=== PATIENT | male | born 1950 | race Two or more races ===

== ENCOUNTER 2024-07-20 08:20 | Day surgery (SDC) | payer MEDICARE ==
[2024-07-16 14:59] LABS: APTT 27 SECONDS (22-32); PROTHROMBIN TIME 10.9 SECONDS (9.0-12.0)
[2024-07-16 15:04] LABS: ALBUMIN 3.9 G/DL (3.4-5.0); ANION GAP 7 (8-16); BLOOD UREA NITROGEN 10 MG/DL (7-18); CALCIUM 9.1 MG/DL (8.5-10.1); CHLORIDE 99 MMOL/L (99-107); CHOL/HDL RATIO 2.7 (0.00-4.99); CHOLESTEROL 167 MG/DL (0-200); CREATININE 0.83 MG/DL (0.60-1.10); GLUCOSE 154 MG/DL (70-104); HDL CHOLESTEROL 62 MG/DL (35-60); LDL CHOLESTEROL 88 MG/DL (50-100); POTASSIUM 4.3 MMOL/L (3.5-5.1); SODIUM 133 MMOL/L (135-145); TOTAL CARBON DIOXIDE 26.6 MMOL/L (24-32); TRIGLYCERIDES 68 MG/DL (20-135); eGFR 90 ML/MIN
[2024-07-16 15:13] LABS: BASOPHILS # (AUTO) 0.1 X10'3 (0-0.2); EOSINOPHILS # (AUTO) 0.3 X10'3 (0-0.9); EOSINOPHILS % (AUTO) 5.5 % (0-6); HEMATOCRIT 41.8 % (42.0-52.0); HEMOGLOBIN 13.9 g/dl (14.0-17.9); LYMPHOCYTES # (AUTO) 1.7 X10'3 (1.1-4.8); LYMPHOCYTES % (AUTO) 28.7 % (21-51); MEAN CORPUSCULAR HEMOGLOBIN 30.7 PG (27.0-31.0); MEAN CORPUSCULAR HGB CONC 33.2 g/dL (33.0-36.5); MEAN CORPUSCULAR VOLUME 92.5 FL (78-98); MEAN PLATELET VOLUME 7.1 FL (7.4-10.4); MONOCYTES # (AUTO) 0.5 X10'3 (0-0.9); MONOCYTES % (AUTO) 8.1 % (2-12); NEUTROPHILS # (AUTO) 3.4 X10'3 (1.8-7.7); NEUTROPHILS % (AUTO) 56.7 % (42-75); PLATELET COUNT 276 X10'3 (140-440); RED BLOOD COUNT 4.52 X10'6 (4.70-6.10); RED CELL DISTRIBUTION WIDTH 12.5 % (11.5-14.5); WHITE BLOOD COUNT 6.1 X10'3 (4.5-11.0)
[~2024-07-20] VITALS: Ht 170.2 cm; Wt 89.1 kg
[2024-07-20] VITALS (10 sets, daily range): BP systolic 121–137; BP diastolic 48–78; PULSE 61–79; RESP 13–21; TEMP 98.3; O2SAT 95–98
[2024-07-20] MEDS ORDERED: LOSA50TA64 PO (09:21)
[2024-07-20] MEDS ORDERED: DICY10CA88 PO (09:21)
[2024-07-20] MEDS ORDERED: METF-1203 PO (09:21)
[2024-07-20] MEDS ORDERED: ZOLP10TA PO (09:21)
[2024-07-20] MEDS ORDERED: CARV3.122 PO (09:21)
[2024-07-20] MEDS ORDERED: ATOR20TA66 PO (09:21)
[2024-07-20] MEDS ORDERED: ASPI81TA52 PO (09:21)
[2024-07-20] MEDS ORDERED: ALPR1TAB7 PO (09:21)
[2024-07-20] MEDS: diphenhydrAMINE 25mg capsule PO PRN (09:57)
[2024-07-20] MEDS: normal saline 1,000 ML IV SCH (09:57)
[2024-07-20] MEDS: LORazepam 0.5 MG tablet PO PRN (09:57)
[2024-07-20] MEDS ORDERED: midazolam 1 mg/ML 2ml injection ONE (11:57)
[2024-07-20] MEDS ORDERED: heparin 1,000unit/ml 10ml vial 10 ML ONE (11:57)
[2024-07-20] MEDS ORDERED: LIDOcaine 1% (10mg/ml) 2ml vial ONE (11:57)
[2024-07-20] MEDS ORDERED: verapamil 2.5 mg/ml inj IV ONE (11:57)
[2024-07-20] MEDS ORDERED: fentaNYL/PF 50MCG/1 ML 2ML syringe ONE (11:57)
[2024-07-20] MEDS ORDERED: iohexol 350MG/ML 100ml bottle IV ONE (11:58)
[2024-07-20] MEDS ORDERED: iohexol 350 MG/ML 50ML vial IV ONE (12:10)
[2024-07-20] MEDS ORDERED: NORMAL SALINE IV ONE (12:50)
== END 2024-07-20 17:15 | disposition home or self-care (01) ==
LOC: SSTAY O 08:20
PROVIDERS: ATTEND Student in an Organized Health Care Education/Training Program
DX: I25.118 Atherosclerotic heart disease of native coronary artery with other forms of angina pectoris (principal); I10 Essential (primary) hypertension; E11.9 Type 2 diabetes mellitus without complications; E78.00 Pure hypercholesterolemia, unspecified; F41.9 Anxiety disorder, unspecified; F32.A Depression, unspecified; I25.2 Old myocardial infarction; Z79.899 Other long term (current) drug therapy
CPT/HCPCS: 36415; 80048; 80061; 85025; 85610; 85730; 93005; 93458; 99152; A6258; A6402; C1751; C1769; C1894; J1644; J2001; J2250; J3010; J3490; J7030; Q0163; Q9967; Z7610; 99153; A6449

== ENCOUNTER 2024-08-04 12:43 | Outpatient (CLI) | payer MEDICARE ==
[~2024-08-04 12:43] MED LIST: ALPR1TAB7 PO; ASPI81TA52 PO; ATOR20TA66 PO; CARV3.122 PO; DICY10CA88 PO; LOSA50TA64 PO; METF-1203 PO; ZOLP10TA PO
[2024-08-04 13:35] LABS: BILIRUBIN,URINE NEGATIVE (Neg); CLARITY,URINE SLIGHTLY CLOUDY (Clear); COLOR,URINE YELLOW (Yellow); GLUCOSE, URINE NEGATIVE (Neg); KETONES,URINE NEGATIVE (Neg); LEUKOCYTE ESTERASE ,URINE MODERATE (Neg); NITRITES, URINE NEGATIVE (Neg); OCCULT BLOOD,URINE NEGATIVE (Neg); PH,URINE 6.5 (4.8-8.0); PROTEIN,URINE NEGATIVE (Neg); UROBILINOGEN,URINE 0.2 E.U/dL (0.2-1.0)
[2024-08-04 13:40] LABS: BASOPHILS % (AUTO) 0.8 % (0-1); EOSINOPHILS # (AUTO) 0.3 X10'3 (0-0.9); EOSINOPHILS % (AUTO) 5.2 % (0-6); HEMATOCRIT 40.4 % (42.0-52.0); HEMOGLOBIN 13.6 g/dl (14.0-17.9); LYMPHOCYTES # (AUTO) 1.9 X10'3 (1.1-4.8); LYMPHOCYTES % (AUTO) 30.5 % (21-51); MEAN CORPUSCULAR HGB CONC 33.5 g/dL (33.0-36.5); MEAN CORPUSCULAR VOLUME 92.5 FL (78-98); MEAN PLATELET VOLUME 6.8 FL (7.4-10.4); MONOCYTES # (AUTO) 0.5 X10'3 (0-0.9); MONOCYTES % (AUTO) 8.2 % (2-12); NEUTROPHILS # (AUTO) 3.4 X10'3 (1.8-7.7); NEUTROPHILS % (AUTO) 55.3 % (42-75); PLATELET COUNT 290 X10'3 (140-440); RED BLOOD COUNT 4.37 X10'6 (4.70-6.10); RED CELL DISTRIBUTION WIDTH 12.8 % (11.5-14.5); UA COLLECTION TYPE CLN CATCH MIDSTREAM; WHITE BLOOD COUNT 6.2 X10'3 (4.5-11.0)
[2024-08-04 13:41] LABS: MUCUS STRANDS FEW /LPF (Neg); SQUAMOUS EPITHELIAL CELL,UR FEW /LPF (FEW)
[2024-08-04 13:44] LABS: BACTERIA,URINE 2+ /HPF (Neg)
[2024-08-04 13:46] LABS: RBC,URINE 0-2 /HPF (0-2)
[2024-08-04 13:54] LABS: ALANINE AMINOTRANSFERASE 23 U/L (12-78); ALBUMIN 3.7 G/DL (3.4-5.0); ALBUMIN/GLOBULIN RATIO 0.9 (1.1-1.5); ALKALINE PHOSPHATASE 67 IU/L (46-116); ANION GAP 8 (8-16); ASPARTATE AMINO TRANSFERASE 21 U/L (10-37); BILIRUBIN,TOTAL 0.7 MG/DL (0.1-1.0); BLOOD UREA NITROGEN 8 MG/DL (7-18); BUN/CREATININE RATIO 10.1 (10.0-20.0); CALCIUM 8.7 MG/DL (8.5-10.1); CHLORIDE 100 MMOL/L (99-107); CHOL/HDL RATIO 2.5 (0.00-4.99); CHOLESTEROL 146 MG/DL (0-200); CREATININE 0.79 MG/DL (0.60-1.10); GLUCOSE 143 MG/DL (70-104); HDL CHOLESTEROL 59 MG/DL (35-60); LDL CHOLESTEROL 78 MG/DL (50-100); POTASSIUM 4.2 MMOL/L (3.5-5.1); SODIUM 135 MMOL/L (135-145); TOTAL PROTEIN 7.8 G/DL (6.4-8.2); TRIGLYCERIDES 60 MG/DL (20-135); eGFR > 90 ML/MIN
[2024-08-04 14:32] LABS: HEMOGLOBIN A1C 6.8 % (4.5-6.2)
[2024-08-06 11:14] LABS: CREATININE, URINE 60.1 mg/dL (Not Estab.); MICROALBUMIN,U,RANDOM 22.5 ug/mL (Not Estab.)
== END 2024-08-04 23:59 | disposition home or self-care (01) ==
LOC: LAB 12:43
PROVIDERS: ATTEND Internal Medicine
DX: I10 Essential (primary) hypertension (principal); E78.5 Hyperlipidemia, unspecified; N39.0 Urinary tract infection, site not specified; Z79.899 Other long term (current) drug therapy
CPT/HCPCS: 36415; 80053; 80061; 81001; 82043; 82570; 83036; 85025

== ENCOUNTER 2024-09-16 08:30 | Inpatient (IN) | payer MEDICARE ==
[2024-09-09 14:55] LABS: BILIRUBIN,URINE NEGATIVE (Neg); CLARITY,URINE SLIGHTLY CLOUDY (Clear); COLOR,URINE YELLOW (Yellow); GLUCOSE, URINE NEGATIVE (Neg); KETONES,URINE NEGATIVE (Neg); LEUKOCYTE ESTERASE ,URINE MODERATE (Neg); NITRITES, URINE POSITIVE (Neg); OCCULT BLOOD,URINE NEGATIVE (Neg); PROTEIN,URINE NEGATIVE (Neg); UROBILINOGEN,URINE 0.2 E.U/dL (0.2-1.0)
[2024-09-09 14:57] LABS: BASOPHILS % (AUTO) 0.5 % (0-1); EOSINOPHILS # (AUTO) 0.2 X10'3 (0-0.9); EOSINOPHILS % (AUTO) 3.1 % (0-6); LYMPHOCYTES # (AUTO) 1.7 X10'3 (1.1-4.8); LYMPHOCYTES % (AUTO) 27.5 % (21-51); MEAN CORPUSCULAR HEMOGLOBIN 31.2 PG (27.0-31.0); MEAN CORPUSCULAR VOLUME 91.9 FL (78-98); MEAN PLATELET VOLUME 6.7 FL (7.4-10.4); MONOCYTES # (AUTO) 0.4 X10'3 (0-0.9); MONOCYTES % (AUTO) 7.2 % (2-12); NEUTROPHILS # (AUTO) 3.7 X10'3 (1.8-7.7); NEUTROPHILS % (AUTO) 61.7 % (42-75); PRE OP HEMATOCRIT 40.3 % (42.0-52.0); PRE OP HEMOGLOBIN 13.7 g/dL (14.0-17.9); PRE OP PLATELET COUNT 294 X10'3 (140-440); PRE OP WHITE BLOOD COUNT 6.1 10'3 (4.8-10.8); RED BLOOD COUNT 4.39 X10'6 (4.70-6.10); RED CELL DISTRIBUTION WIDTH 12.8 % (11.5-14.5)
[2024-09-09 14:59] LABS: UA COLLECTION TYPE CLN CATCH MIDSTREAM
[2024-09-09 15:01] LABS: BACTERIA,URINE 3+ /HPF (Neg); RBC,URINE NONE SEEN /HPF (0-2); WBC,URINE 30-50 /HPF (0-4)
[2024-09-09 15:02] LABS: MUCUS STRANDS FEW /LPF (Neg); SQUAMOUS EPITHELIAL CELL,UR FEW /LPF (FEW); WBC CLUMPS,URINE FEW /HPF (NEGATIVE)
[2024-09-09 15:09] LABS: PRE OP PROTIME 10.5 SECONDS (9.0-12.0)
[2024-09-09 15:10] LABS: ALBUMIN 3.8 G/DL (3.4-5.0); ALBUMIN/GLOBULIN RATIO 0.9 (1.1-1.5); ALKALINE PHOSPHATASE 74 IU/L (46-116); BLOOD UREA NITROGEN 8 MG/DL (7-18); BUN/CREATININE RATIO 9.6 (10.0-20.0); CALCIUM 9.4 MG/DL (8.5-10.1); CHLORIDE 100 MMOL/L (99-107); CREATININE 0.83 MG/DL (0.60-1.10); PRE OP ALT 21 U/L (30-65); PRE OP ANION GAP 5 (8-16); PRE OP AST 15 U/L (10-37); PRE OP BILIRUB, TOTAL 0.5 MG/DL (0.0-1.0); PRE OP GLUCOSE 126 MG/DL (70-104); PRE OP POTASSIUM 4.3 MMOL/L (3.4-5.1); PRE OP SODIUM 137 MMOL/L (135-145); TOTAL CARBON DIOXIDE 32.3 MMOL/L (24-32); TOTAL PROTEIN 8.2 G/DL (6.4-8.2); eGFR 90 ML/MIN
[2024-09-09 15:13] VITALS: PULSE 80; RESP 16; O2SAT 98
[2024-09-09 15:37] LABS: HEMOGLOBIN A1C 6.4 % (4.5-6.2)
[2024-09-10 08:18] LABS: ABG BASE EXCESS -0.9 mmol/L (-2.0-3.0); ABG HCO3 22.9 mmol/L (21.0-28.0); ABG OXYGEN SATURATION 96.6 % (94.0-98.0); ABG PCO2 (T) 35.3 mmHg (35.0-48.0); ABG PO2 (T) 90.3 mmHg (83.0-108.0); ALLEN'S TEST POSITIVE; FCOHb 0.3 % (0.5-1.5); FHHb 3.4 % (0.0-5.0); FMetHb 0.3 % (0.0-1.5); MODE ROOM AIR; TOTAL HEMOGLOBIN 12.4 G/dl (13.5-17.5)
[~2024-09-16] VITALS: Ht 167.6 cm; Wt 90.4 kg
[~2024-09-16 08:30] MED LIST changes: -ASPI81TA52 PO; -DICY10CA88 PO
[2024-09-17] VITALS (22 sets, daily range): BP systolic 97–150; BP diastolic 43–84; PULSE 74–96; RESP 12–30; TEMP 97.6; O2SAT 96–100
[2024-09-17] MEDS: Insulin Reg/NS 100units/100mL 100 ML IV SCH (05:30)
[2024-09-17] MEDS ORDERED: insulin glargine (Lantus) pen - multi-dose SQ PRN ×2 (05:30→11:40)
[2024-09-17] MEDS: DOCUMENT DATE & TIME OF BETA-BLOCKER PO ONE (05:30)
[2024-09-17] MEDS ORDERED: dextrose 50%-water 50ml dispensing syringe IV PRN ×2 (05:30→11:40)
[2024-09-17] MEDS: ceFAZolin 2gm in dextrose, iso 50 ML IV ONE (05:59)
[2024-09-17] MEDS: famotidine 20mg tablet PO ONE (06:02)
[2024-09-17] MEDS: ringers solution, lacted 1,000 ML IV SCH (06:02)
[2024-09-17] MEDS: mupirocin 2% nasal ointment 1gm UD NS ONE (06:02)
[2024-09-17] MEDS: VANCOMYCIN 1,500MG inj. 1,500 MG in normal saline 500ml IV soln 300 ML IV ONE (06:03)
[2024-09-17] MEDS ORDERED: ceFAZolin 1000mg inj ONE (06:07)
[2024-09-17] MEDS ORDERED: vancomycin 1,000mg inj ONE (06:07)
[2024-09-17] MEDS ORDERED: BUPIVAcaine 0.5% inj/PF 30 ML ONE (06:07)
[2024-09-17] MEDS ORDERED: epiNEPHrine 1 mg/ml inj ONE (06:07)
[2024-09-17] MEDS: metoprolol tartrate 12.5mg (1/2 tablet) PO ONE (06:08)
[2024-09-17] MEDS ORDERED: SUfentanil 50mcg/ml 1ml amp IV ONE (07:53)
[2024-09-17] MEDS ORDERED: MIDAZolam 1 MG/ML 5ML VIAL ONE (07:53)
[2024-09-17] MEDS ORDERED: propofol inj 20 ML IV ONE (07:53)
[2024-09-17] MEDS ORDERED: sevoflurane 250ml liquid IH ONE (07:58)
[2024-09-17] MEDS: LORazepam 2 mg/ml vial IV ONE (08:00)
[2024-09-17 08:47] LABS: ABG BASE EXCESS -0.6 mmol/L (-2.0-3.0); ABG HCO3 23.2 mmol/L (21.0-28.0); ABG OXYGEN SATURATION 99.4 % (94.0-98.0); ABG PCO2 35.4 mmHg (35.0-48.0); ABG PH 7.434 (7.350-7.450); ABG PO2 266.3 mmHg (83.0-108.0); CL (ABG) 101 mmol/L (98-107); FCOHb 0.3 % (0.5-1.5); FHHb 0.6 % (0.0-5.0); FO2Hb 99.1 % (94.0-98.0); GLUCOSE (ABG) 133 mg/dl (65-95); IONIZED CA (ABG) 1.18 mmol/L (1.15-1.33); K (ABG) 4.1 mmol/L (3.40-4.50); TOTAL HEMOGLOBIN 12.3 G/dl (13.5-17.5)
[2024-09-17 09:57] LABS: ABG BASE EXCESS VENOUS -1.4 mmol/L (-2.0-3.0); ABG HCO3 VENOUS 23.1 mmol/L (22.0-29.0); ABG OXYGEN SATURATION VENOUS 83.8 % (60.0-85.0); ABG PCO2 VENOUS 37.6 mmHg (38.0-54.0); ABG PH (VENOUS) 7.406 (7.320-7.430); ABG PO2 VENOUS 48.5 mmHg (23.0-48.0); CL (ABG) 97 mmol/L (98-107); FCOHb VENOUS 0.3 % (0.5-1.5); FHHb VENOUS 16.1 %; FMetHb VENOUS 0.3 % (0.5-1.5); FO2Hb VENOUS 83.3 % (0-80.0); GLUCOSE (ABG) 107 mg/dl (65-95); IONIZED CA (ABG) 0.94 mmol/L (1.15-1.33); K (ABG) 3.7 mmol/L (3.40-4.50); TOTAL HEMOGLOBIN 8.2 G/dl (13.5-17.5)
[2024-09-17 10:01] LABS: ABG BASE EXCESS -2.1 mmol/L (-2.0-3.0); ABG HCO3 21.8 mmol/L (21.0-28.0); ABG OXYGEN SATURATION 99.5 % (94.0-98.0); ABG PCO2 33.9 mmHg (35.0-48.0); ABG PH 7.427 (7.350-7.450); CL (ABG) 98 mmol/L (98-107); FCOHb 0.3 % (0.5-1.5); FHHb 0.5 % (0.0-5.0); FMetHb 0.3 % (0.0-1.5); FO2Hb 98.9 % (94.0-98.0); GLUCOSE (ABG) 107 mg/dl (65-95); K (ABG) 3.7 mmol/L (3.40-4.50); TOTAL HEMOGLOBIN 8.4 G/dl (13.5-17.5)
[2024-09-17 10:31] LABS: ABG BASE EXCESS 0.2 mmol/L (-2.0-3.0); ABG HCO3 25.6 mmol/L (21.0-28.0); ABG OXYGEN SATURATION 99.4 % (94.0-98.0); ABG PCO2 45.1 mmHg (35.0-48.0); ABG PH 7.372 (7.350-7.450); CL (ABG) 100 mmol/L (98-107); FCOHb 0.3 % (0.5-1.5); FHHb 0.6 % (0.0-5.0); FMetHb 0.3 % (0.0-1.5); FO2Hb 98.8 % (94.0-98.0); GLUCOSE (ABG) 119 mg/dl (65-95); IONIZED CA (ABG) 1.08 mmol/L (1.15-1.33); K (ABG) 3.9 mmol/L (3.40-4.50); TOTAL HEMOGLOBIN 9.7 G/dl (13.5-17.5)
[2024-09-17 10:48] LABS: ABG BASE EXCESS 1.2 mmol/L (-2.0-3.0); ABG HCO3 25.6 mmol/L (21.0-28.0); ABG OXYGEN SATURATION 99.5 % (94.0-98.0); ABG PCO2 39.5 mmHg (35.0-48.0); ABG PH 7.429 (7.350-7.450); CL (ABG) 98 mmol/L (98-107); FCOHb 0.3 % (0.5-1.5); FHHb 0.5 % (0.0-5.0); FMetHb 0.3 % (0.0-1.5); FO2Hb 98.9 % (94.0-98.0); GLUCOSE (ABG) 108 mg/dl (65-95); IONIZED CA (ABG) 1.03 mmol/L (1.15-1.33); K (ABG) 3.6 mmol/L (3.40-4.50); TOTAL HEMOGLOBIN 9.2 G/dl (13.5-17.5)
[2024-09-17 11:22] LABS: ACTIVATED CLOTTING TIME 132 SEC (101-148)
[2024-09-17 11:24] LABS: ABG BASE EXCESS -2.2 mmol/L (-2.0-3.0); ABG HCO3 22.1 mmol/L (21.0-28.0); ABG OXYGEN SATURATION 87.5 % (94.0-98.0); ABG PCO2 35.8 mmHg (35.0-48.0); ABG PH 7.408 (7.350-7.450); CL (ABG) 100 mmol/L (98-107); FCOHb 0.3 % (0.5-1.5); FHHb 12.4 % (0.0-5.0); FMetHb 0.3 % (0.0-1.5); GLUCOSE (ABG) 104 mg/dl (65-95); IONIZED CA (ABG) 1.25 mmol/L (1.15-1.33); K (ABG) 3.7 mmol/L (3.40-4.50); TOTAL HEMOGLOBIN 9.8 G/dl (13.5-17.5)
[2024-09-17] MEDS ORDERED: ondansetron/PF 4mg/2ml inj IV PRN (11:40)
[2024-09-17] MEDS ORDERED: Neutra Phos packet PO PRN (11:40)
[2024-09-17] MEDS ORDERED: metoclopramide 5 mg/ml inj IV PRN (11:40)
[2024-09-17] MEDS ORDERED: sodium phosphate inj. 30 MMOL in dextrose 5%-water 250 ML IV PRN (11:40)
[2024-09-17] MEDS ORDERED: acetaminophen 325mg tablet PO PRN ×2 (11:40)
[2024-09-17] MEDS ORDERED: bisacodyl 10mg suppository rectal RC PRN (11:40)
[2024-09-17] MEDS ORDERED: potassium Cl 40MEQ/270ML bag 250 ML IV PRN (11:40)
[2024-09-17] MEDS ORDERED: potassium CL 10mEq/100ml bag 100 ML IV PRN (11:40)
[2024-09-17] MEDS ORDERED: nitroGLYCERIN-Tridil 50MG/D5W 250 ML IV SCH (11:40)
[2024-09-17] MEDS ORDERED: magnesium hydroxide 30ml (MOM) UD suspension PO PRN (11:40)
[2024-09-17] MEDS ORDERED: Insulin Reg/NS 100units/100mL 100 ML IV SCH (11:40)
[2024-09-17] MEDS: sodium chloride 0.45% 1,000 ML IV SCH (11:40)
[2024-09-17] MEDS ORDERED: potassium Cl 40MEQ/1/2NS 520ml 520 ML IV PRN (11:40)
[2024-09-17] MEDS ORDERED: potassium Cl 20 mEq SR tablet PO PRN (11:40)
[2024-09-17] MEDS ORDERED: niCARDipine-NS 40mg/200ml IVPB 200 ML IV PRN (11:40)
[2024-09-17] MEDS ORDERED: mineral oil 133ml enema RC PRN (11:40)
[2024-09-17] MEDS: nitroGLYCERIN-Tridil 50MG/D5W 250 ML IV SCH (11:50)
[2024-09-17] MEDS ORDERED: rocuronium 10mg/ml inj IV ONE ×4 (11:50)
[2024-09-17] MEDS ORDERED: albumin (Human) 5% 250ml 0 ML IV ONE (11:50)
[2024-09-17] MEDS ORDERED: albumin (Human) 5% 250ml 250 ML IV ONE ×2 (11:51)
[2024-09-17] MEDS: NORepinephrine 8mg/ 250ml NS 250 ML IV SCH (12:00)
[2024-09-17] MEDS: DOBUTamine-DoBUTrex 500mg/D5W 250 ML IV SCH ×2 (12:00→14:06)
[2024-09-17 12:23] LABS: ABG BASE EXCESS -0.5 mmol/L (-2.0-3.0); ABG OXYGEN SATURATION 99.4 % (94.0-98.0); ABG PCO2 (T) 31.7 mmHg (35.0-48.0); ABG PH (T) 7.473 (7.350-7.450); ABG PO2 (T) 191.9 mmHg (83.0-108.0); FCOHb 0.1 % (0.5-1.5); FHHb 0.6 % (0.0-5.0); FMetHb 0.3 % (0.0-1.5); MODE VENT - SIMV; PATIENT TEMPERATURE 35.7; PEEP 5 cm H2O; RESPIRATORY RATE 12 b/min; TIDAL VOLUME 500 mL; TOTAL HEMOGLOBIN 10.4 G/dl (13.5-17.5)
[2024-09-17] MEDS: gabapentin 300mg capsule PO SCH (12:54)
[2024-09-17 13:13] LABS: APTT 31 SECONDS (22-32); INR 1.2 INR; PROTHROMBIN TIME 12.8 SECONDS (9.0-12.0)
[2024-09-17 13:15] LABS: BASOPHILS % (AUTO) 0.3 % (0-1); EOSINOPHILS # (AUTO) 0.1 X10'3 (0-0.9); EOSINOPHILS % (AUTO) 1.7 % (0-6); HEMATOCRIT 27.8 % (42.0-52.0); HEMOGLOBIN 9.5 g/dl (14.0-17.9); LYMPHOCYTES # (AUTO) 1.7 X10'3 (1.1-4.8); LYMPHOCYTES % (AUTO) 22.3 % (21-51); MEAN CORPUSCULAR HEMOGLOBIN 31.2 PG (27.0-31.0); MEAN CORPUSCULAR HGB CONC 34.2 g/dL (33.0-36.5); MEAN CORPUSCULAR VOLUME 91.3 FL (78-98); MEAN PLATELET VOLUME 6.8 FL (7.4-10.4); MONOCYTES # (AUTO) 0.4 X10'3 (0-0.9); MONOCYTES % (AUTO) 5.6 % (2-12); NEUTROPHILS # (AUTO) 5.2 X10'3 (1.8-7.7); NEUTROPHILS % (AUTO) 70.1 % (42-75); PLATELET COUNT 162 X10'3 (140-440); RED BLOOD COUNT 3.04 X10'6 (4.70-6.10); RED CELL DISTRIBUTION WIDTH 12.5 % (11.5-14.5); WHITE BLOOD COUNT 7.5 X10'3 (4.5-11.0)
[2024-09-17 13:16] LABS: ALANINE AMINOTRANSFERASE 19 U/L (12-78); ALBUMIN 3.4 G/DL (3.4-5.0); ALBUMIN/GLOBULIN RATIO 1.5 (1.1-1.5); ALKALINE PHOSPHATASE 41 IU/L (46-116); ANION GAP 10 (8-16); ASPARTATE AMINO TRANSFERASE 23 U/L (10-37); BILIRUBIN,TOTAL 0.7 MG/DL (0.1-1.0); BLOOD UREA NITROGEN 10 MG/DL (7-18); BUN/CREATININE RATIO 15.6 (10.0-20.0); CALCIUM 9.7 MG/DL (8.5-10.1); CHLORIDE 106 MMOL/L (99-107); CREATININE 0.64 MG/DL (0.60-1.10); GLUCOSE 122 MG/DL (70-104); MAGNESIUM 1.6 MG/DL (1.5-2.4); POTASSIUM 3.5 MMOL/L (3.5-5.1); SODIUM 140 MMOL/L (135-145); TOTAL CARBON DIOXIDE 24.3 MMOL/L (24-32); TOTAL PROTEIN 5.7 G/DL (6.4-8.2); eCRCL 89 ML/MIN; eGFR > 90 ML/MIN
[2024-09-17] MEDS: potassium Cl 20mEq/100mL bag 100 ML IV PRN (14:06)
[2024-09-17] MEDS: magnesium sulf-water 4G/100mL 100 ML IV PRN (14:08)
[2024-09-17] MEDS: sodium phosphate inj. 15 MMOL in dextrose 5%-water 250 ML IV PRN (14:23)
[2024-09-17] MEDS: albumin (Human) 5% 250ml 250 ML IV PRN (15:07)
[2024-09-17] MEDS: ceFAZolin/D5W- 1GM premix 50 ML IV SCH (16:05)
[2024-09-17] MEDS: magnesium sulf-water 2g/50mL 50 ML IV PRN (16:54)
[2024-09-17 18:14] LABS: BASOPHILS % (AUTO) 0.1 % (0-1); EOSINOPHILS % (AUTO) 0 % (0-6); HEMATOCRIT 24.9 % (42.0-52.0); HEMOGLOBIN 8.5 g/dl (14.0-17.9); MEAN CORPUSCULAR HEMOGLOBIN 31.3 PG (27.0-31.0); MEAN CORPUSCULAR HGB CONC 34.3 g/dL (33.0-36.5); MEAN CORPUSCULAR VOLUME 91.5 FL (78-98); MEAN PLATELET VOLUME 6.8 FL (7.4-10.4); MONOCYTES # (AUTO) 0.4 X10'3 (0-0.9); MONOCYTES % (AUTO) 3.4 % (2-12); NEUTROPHILS # (AUTO) 9.3 X10'3 (1.8-7.7); NEUTROPHILS % (AUTO) 87.5 % (42-75); PLATELET COUNT 187 X10'3 (140-440); RED BLOOD COUNT 2.73 X10'6 (4.70-6.10); RED CELL DISTRIBUTION WIDTH 12.4 % (11.5-14.5); WHITE BLOOD COUNT 10.6 X10'3 (4.5-11.0)
[2024-09-17 18:21] LABS: ALBUMIN 3.7 G/DL (3.4-5.0); ANION GAP 7 (8-16); BLOOD UREA NITROGEN 12 MG/DL (7-18); BUN/CREATININE RATIO 12.9 (10.0-20.0); CALCIUM 8.5 MG/DL (8.5-10.1); CHLORIDE 107 MMOL/L (99-107); CREATININE 0.93 MG/DL (0.60-1.10); GLUCOSE 192 MG/DL (70-104); MAGNESIUM 3.1 MG/DL (1.5-2.4); PHOSPHORUS 3.3 MG/DL (2.3-4.5); POTASSIUM 4.3 MMOL/L (3.5-5.1); SODIUM 138 MMOL/L (135-145); TOTAL CARBON DIOXIDE 24.1 MMOL/L (24-32); eCRCL 61 ML/MIN; eGFR 79 ML/MIN
[2024-09-17] MEDS: morphine 2 MG/ML inj. syringe IV PRN (18:29)
[2024-09-17] MEDS: morphine 4 MG/ML inj SYRINge IV PRN (19:36)
[2024-09-17] MEDS: vancomycin/NS 1 GM ADD-VANTAGE 250 ML IV SCH (19:44)
[2024-09-17] MEDS: mupirocin 2% nasal ointment 1gm UD NS SCH (19:45)
[2024-09-17] MEDS ORDERED: VANCOMYCIN 1GM 200ML H20 (PEG) 200 ML IV SCH (20:00)
[2024-09-17] MEDS: sennosides/docusate sodium tablet PO SCH (20:00)
[2024-09-17] MEDS: atorvastatin 10mg tablet PO SCH (21:42)
[2024-09-17] MEDS: HYDROcodone/acetaminophen 10/325mg tab PO PRN (23:20)
[2024-09-18] VITALS (26 sets, daily range): BP systolic 90–146; BP diastolic 41–72; PULSE 61–93; RESP 9–24; O2SAT 87–99
[2024-09-18 04:35] LABS: BASOPHILS % (AUTO) 0.1 % (0-1); EOSINOPHILS % (AUTO) 0 % (0-6); HEMATOCRIT 22.4 % (42.0-52.0); HEMOGLOBIN 7.6 g/dl (14.0-17.9); LYMPHOCYTES # (AUTO) 0.8 X10'3 (1.1-4.8); LYMPHOCYTES % (AUTO) 7.1 % (21-51); MEAN CORPUSCULAR HEMOGLOBIN 31.1 PG (27.0-31.0); MEAN CORPUSCULAR HGB CONC 33.8 g/dL (33.0-36.5); MEAN CORPUSCULAR VOLUME 91.8 FL (78-98); MEAN PLATELET VOLUME 7.2 FL (7.4-10.4); MONOCYTES # (AUTO) 0.6 X10'3 (0-0.9); NEUTROPHILS # (AUTO) 9.3 X10'3 (1.8-7.7); NEUTROPHILS % (AUTO) 86.8 % (42-75); PLATELET COUNT 163 X10'3 (140-440); RED BLOOD COUNT 2.44 X10'6 (4.70-6.10); RED CELL DISTRIBUTION WIDTH 12.7 % (11.5-14.5); WHITE BLOOD COUNT 10.7 X10'3 (4.5-11.0)
[2024-09-18 04:42] LABS: ALANINE AMINOTRANSFERASE 16 U/L (12-78); ALBUMIN 3.7 G/DL (3.4-5.0); ALBUMIN/GLOBULIN RATIO 1.5 (1.1-1.5); ALKALINE PHOSPHATASE 37 IU/L (46-116); ANION GAP 9 (8-16); ASPARTATE AMINO TRANSFERASE 27 U/L (10-37); BILIRUBIN,TOTAL 0.6 MG/DL (0.1-1.0); BLOOD UREA NITROGEN 14 MG/DL (7-18); BUN/CREATININE RATIO 18.7 (10.0-20.0); CALCIUM 8.1 MG/DL (8.5-10.1); CHLORIDE 105 MMOL/L (99-107); CREATININE 0.75 MG/DL (0.60-1.10); GLUCOSE 118 MG/DL (70-104); MAGNESIUM 2.2 MG/DL (1.5-2.4); PHOSPHORUS 3.8 MG/DL (2.3-4.5); POTASSIUM 5.1 MMOL/L (3.5-5.1); SODIUM 137 MMOL/L (135-145); TOTAL CARBON DIOXIDE 23.1 MMOL/L (24-32); TOTAL PROTEIN 6.2 G/DL (6.4-8.2); eCRCL 76 ML/MIN; eGFR > 90 ML/MIN
[2024-09-18] MEDS: aspirin 81mg tab.chew PO SCH (08:52)
[2024-09-18] MEDS: metoprolol tartrate 12.5mg (1/2 tablet) PO SCH (08:52)
[2024-09-18] MEDS: HYDROcodone/acetaminophen 10/325mg tab PO PRN (09:40)
[2024-09-18] MEDS: albumin (Human) 5% 250ml 250 ML IV ONE (11:31)
[2024-09-18] MEDS ORDERED: dextrose 50%-water 50ml dispensing syringe IV PRN ×2 (13:25)
[2024-09-18] MEDS ORDERED: DEXTROSE 15 GM of carb/4 tabs (each vial/BOTTLE has 4 tablets) PO PRN ×2 (13:25)
[2024-09-18] MEDS ORDERED: glucagon, human recombinant 1mg kit SUBCUT PRN (13:25)
[2024-09-18] MEDS: INSULIN LISPRO 100 UNIT/ML INSULN.PEN MULTI-DOSE SQ SCH (18:05)
[2024-09-18] MEDS: LidoCAINE 2% Topical Jelly 11mL syringe (UROJET) TOP ONE (21:21)
[2024-09-18] MEDS: furosemide 20 MG/2 ML vial IV ONE (21:45)
[2024-09-19] VITALS (22 sets, daily range): BP systolic 120–169; BP diastolic 59–91; PULSE 54–99; RESP 13–19; TEMP 97.4–97.7; O2SAT 92–100
[2024-09-19 03:53] LABS: BASOPHILS % (AUTO) 0 % (0-1); EOSINOPHILS % (AUTO) 0 % (0-6); HEMATOCRIT 23.3 % (42.0-52.0); HEMOGLOBIN 7.9 g/dl (14.0-17.9); LYMPHOCYTES # (AUTO) 0.8 X10'3 (1.1-4.8); LYMPHOCYTES % (AUTO) 5.4 % (21-51); MEAN CORPUSCULAR HEMOGLOBIN 31.3 PG (27.0-31.0); MEAN CORPUSCULAR HGB CONC 34.1 g/dL (33.0-36.5); MEAN CORPUSCULAR VOLUME 91.7 FL (78-98); MEAN PLATELET VOLUME 7.7 FL (7.4-10.4); MONOCYTES # (AUTO) 1.3 X10'3 (0-0.9); MONOCYTES % (AUTO) 9.2 % (2-12); NEUTROPHILS % (AUTO) 85.4 % (42-75); PLATELET COUNT 172 X10'3 (140-440); RED BLOOD COUNT 2.54 X10'6 (4.70-6.10); RED CELL DISTRIBUTION WIDTH 12.7 % (11.5-14.5)
[2024-09-19 04:13] LABS: ALBUMIN 3.8 G/DL (3.4-5.0); ANION GAP 9 (8-16); BLOOD UREA NITROGEN 31 MG/DL (7-18); BUN/CREATININE RATIO 31.3 (10.0-20.0); CALCIUM 7.9 MG/DL (8.5-10.1); CHLORIDE 98 MMOL/L (99-107); CREATININE 0.99 MG/DL (0.60-1.10); GLUCOSE 293 MG/DL (70-104); MAGNESIUM 2.6 MG/DL (1.5-2.4); PHOSPHORUS 3.7 MG/DL (2.3-4.5); SODIUM 129 MMOL/L (135-145); TOTAL CARBON DIOXIDE 22.4 MMOL/L (24-32); eCRCL 57 ML/MIN; eGFR 73 ML/MIN
[2024-09-19 04:29] LABS: POTASSIUM 6.1 MMOL/L (3.5-5.1)
[2024-09-19] MEDS: albumin (human) 25% 100 ML IV solution IV ONE (04:51)
[2024-09-19] MEDS: pantoprazole 40mg Tablet.DR PO SCH (07:47)
[2024-09-19] MEDS ORDERED: DEXTROSE 15 GM of carb/4 tabs (each vial/BOTTLE has 4 tablets) PO PRN ×2 (12:20)
[2024-09-19] MEDS ORDERED: dextrose 50%-water 50ml dispensing syringe IV PRN ×2 (12:20)
[2024-09-19] MEDS ORDERED: glucagon, human recombinant 1mg kit SUBCUT PRN (12:20)
[2024-09-19] MEDS: INSULIN LISPRO 100 UNIT/ML INSULN.PEN MULTI-DOSE SQ SCH (13:58)
[2024-09-19] MEDS: heparin, porcine 5000 units/ml vial SQ SCH (16:00)
[2024-09-19] MEDS: insulin glargine (Lantus) pen - multi-dose SQ SCH (21:52)
[2024-09-20] VITALS (8 sets, daily range): BP systolic 131–145; BP diastolic 66–88; PULSE 72–99; RESP 15–21; TEMP 97.2–99.6; O2SAT 95–98
[2024-09-20 07:00] LABS: BASOPHILS % (AUTO) 0.1 % (0-1); EOSINOPHILS % (AUTO) 0 % (0-6); HEMATOCRIT 23.2 % (42.0-52.0); HEMOGLOBIN 7.8 g/dl (14.0-17.9); LYMPHOCYTES # (AUTO) 2.5 X10'3 (1.1-4.8); LYMPHOCYTES % (AUTO) 15.4 % (21-51); MEAN CORPUSCULAR HEMOGLOBIN 30.7 PG (27.0-31.0); MEAN CORPUSCULAR HGB CONC 33.6 g/dL (33.0-36.5); MEAN CORPUSCULAR VOLUME 91.4 FL (78-98); MEAN PLATELET VOLUME 7.3 FL (7.4-10.4); MONOCYTES # (AUTO) 1.5 X10'3 (0-0.9); MONOCYTES % (AUTO) 9.4 % (2-12); NEUTROPHILS # (AUTO) 12.1 X10'3 (1.8-7.7); NEUTROPHILS % (AUTO) 75.1 % (42-75); PLATELET COUNT 181 X10'3 (140-440); RED BLOOD COUNT 2.53 X10'6 (4.70-6.10); RED CELL DISTRIBUTION WIDTH 12.8 % (11.5-14.5); WHITE BLOOD COUNT 16.1 X10'3 (4.5-11.0)
[2024-09-20 07:10] LABS: ALBUMIN 3.7 G/DL (3.4-5.0); ANION GAP 6 (8-16); BLOOD UREA NITROGEN 21 MG/DL (7-18); BUN/CREATININE RATIO 28.8 (10.0-20.0); CALCIUM 8.3 MG/DL (8.5-10.1); CHLORIDE 100 MMOL/L (99-107); CREATININE 0.73 MG/DL (0.60-1.10); GLUCOSE 179 MG/DL (70-104); MAGNESIUM 2.2 MG/DL (1.5-2.4); PHOSPHORUS 2.1 MG/DL (2.3-4.5); POTASSIUM 4.5 MMOL/L (3.5-5.1); SODIUM 131 MMOL/L (135-145); TOTAL CARBON DIOXIDE 25.5 MMOL/L (24-32); eCRCL 78 ML/MIN; eGFR > 90 ML/MIN
[2024-09-20] MEDS ORDERED: traMADol 50MG tablet PO PRN (08:50)
[2024-09-20] MEDS ORDERED: zolpidem 5mg tablet PO PRN (08:50)
[2024-09-20] MEDS: potassium Cl 20 mEq SR tablet PO SCH (09:00)
[2024-09-20] MEDS: furosemide 40mg/4ml inj IV SCH (10:21)
[2024-09-20] MEDS: metoprolol tartrate 25mg tablet PO SCH (10:22)
[2024-09-20 10:47] LABS: ABG PO2 374.2 mmHg (83.0-108.0)
[2024-09-20 10:48] LABS: ABG PO2 357.6 mmHg (83.0-108.0)
[2024-09-20 10:48] LABS: ABG PO2 366.9 mmHg (83.0-108.0)
[2024-09-20 10:49] LABS: ABG PO2 51.4 mmHg (83.0-108.0)
[2024-09-20] MEDS: ALPRAZolam 0.5mg tablet PO PRN (21:07)
[2024-09-21] VITALS (9 sets, daily range): BP systolic 105–145; BP diastolic 60–78; PULSE 76–106; RESP 12–22; TEMP 97.5–98.9; O2SAT 96–98
[2024-09-21 06:42] LABS: BASOPHILS % (AUTO) 0.2 % (0-1); EOSINOPHILS # (AUTO) 0.1 X10'3 (0-0.9); EOSINOPHILS % (AUTO) 0.7 % (0-6); HEMATOCRIT 24.6 % (42.0-52.0); HEMOGLOBIN 8.4 g/dl (14.0-17.9); LYMPHOCYTES # (AUTO) 3.1 X10'3 (1.1-4.8); LYMPHOCYTES % (AUTO) 21.1 % (21-51); MEAN CORPUSCULAR HEMOGLOBIN 31.3 PG (27.0-31.0); MEAN CORPUSCULAR VOLUME 92.1 FL (78-98); MEAN PLATELET VOLUME 7.1 FL (7.4-10.4); MONOCYTES # (AUTO) 1.3 X10'3 (0-0.9); NEUTROPHILS # (AUTO) 10.3 X10'3 (1.8-7.7); PLATELET COUNT 245 X10'3 (140-440); RED BLOOD COUNT 2.67 X10'6 (4.70-6.10); RED CELL DISTRIBUTION WIDTH 12.5 % (11.5-14.5); WHITE BLOOD COUNT 14.9 X10'3 (4.5-11.0)
[2024-09-21 07:06] LABS: ALBUMIN 3.6 G/DL (3.4-5.0); ANION GAP 6 (8-16); BLOOD UREA NITROGEN 17 MG/DL (7-18); BUN/CREATININE RATIO 26.6 (10.0-20.0); CALCIUM 8.7 MG/DL (8.5-10.1); CHLORIDE 100 MMOL/L (99-107); CREATININE 0.64 MG/DL (0.60-1.10); GLUCOSE 166 MG/DL (70-104); MAGNESIUM 1.8 MG/DL (1.5-2.4); POTASSIUM 4.1 MMOL/L (3.5-5.1); SODIUM 133 MMOL/L (135-145); TOTAL CARBON DIOXIDE 26.7 MMOL/L (24-32); eCRCL 89 ML/MIN; eGFR > 90 ML/MIN
[2024-09-21] MEDS: losartan 50mg tablet PO SCH (12:00)
[2024-09-21] MEDS ORDERED: TRAM50TA2 PO (12:13)
[2024-09-21] MEDS ORDERED: ASPI81TA53 PO (12:13)
[2024-09-21] MEDS ORDERED: POTA-206 PO (12:13)
[2024-09-21] MEDS ORDERED: FURO-150 PO (12:13)
[2024-09-21] MEDS ORDERED: MAGN400T29 PO (12:13)
[2024-09-21] MEDS ORDERED: PANT40TA54 PO (12:13)
[2024-09-22 02:00] VITALS: BP 134/76; PULSE 74; RESP 20; TEMP 98.3; O2SAT 98
[2024-09-22 06:00] VITALS: BP 129/69; PULSE 91; RESP 18; TEMP 97.7; O2SAT 97
[2024-09-22 07:00] VITALS: RESP 18; O2SAT 97
[2024-09-22 08:16] LABS: MAGNESIUM 1.9 MG/DL (1.5-2.4); PHOSPHORUS 3.9 MG/DL (2.3-4.5); POTASSIUM 3.9 MMOL/L (3.5-5.1)
[2024-09-22 11:00] VITALS: BP 106/59; PULSE 90; RESP 17; TEMP 97.4; O2SAT 97
== END 2024-09-22 14:25 | disposition home or self-care (01) | DRG 235 ==
LOC: PAS IN 09-17 05:29 → CICU 2S 09-17 12:09 → PCU 3S 09-19 15:38
PROVIDERS: ADMIT Thoracic Surgery (Cardiothoracic Vascular Surgery); ATTEND Thoracic Surgery (Cardiothoracic Vascular Surgery)
PROC: 021209W Bypass Coronary Artery, Three Arteries from Aorta with Autologous Venous Tissue, Open Approach (ICD-10-PCS; 2024-09-17)
PROC: 06BP4ZZ Excision of Right Saphenous Vein, Percutaneous Endoscopic Approach (ICD-10-PCS; 2024-09-17)
PROC: B24BZZ4 Ultrasonography of Heart with Aorta, Transesophageal (ICD-10-PCS; 2024-09-17)
PROC: 02100Z9 Bypass Coronary Artery, One Artery from Left Internal Mammary, Open Approach (ICD-10-PCS; principal; 2024-09-17 07:58)
DX: I11.0 Hypertensive heart disease with heart failure (principal); I50.23 Acute on chronic systolic (congestive) heart failure; D62 Acute posthemorrhagic anemia; I25.10 Atherosclerotic heart disease of native coronary artery without angina pectoris; E11.9 Type 2 diabetes mellitus without complications; Z79.84 Long term (current) use of oral hypoglycemic drugs; R41.0 Disorientation, unspecified; T40.2X5A Adverse effect of other opioids, initial encounter; Y92.239 Unspecified place in hospital as the place of occurrence of the external cause
CPT/HCPCS: 36415; 36600; 71045; 71046; 80048; 80053; 81001; 82330; 82435; 82803; 82947; 82948; 83036; 83735; 84100; 84132; 84295; 85018; 85025; 85347; 85610; 85730; 86885; 86900; 86901; 86920; 87077; 87081; 87088; 87186; 93005; 93312; 93325; 93970; 94002; 94010; 94760; 97110; 97116; 97161; 97530; A4615; A4618; A6212; A6213; A6258; A6402; A6449; A7000; A7048; C1751; G0378; J0171; J0690; J1644; J1815; J1940; J2060; J2150; J2250; J2270; J2704; J2720; J2919; J3370; J3475; J3480; J3490; J7030; J7040; J7050; J7060; J7120; P9045; P9047

== ENCOUNTER 2024-11-30 12:41 | Outpatient (CLI) | payer MEDICARE ==
[~2024-11-30 12:41] MED LIST changes: +ASPI81TA53 PO; +FURO-150 PO; +MAGN400T29 PO; +PANT40TA54 PO; +POTA-206 PO; +TRAM50TA2 PO
[2024-11-30 13:18] LABS: BILIRUBIN,URINE NEGATIVE (Neg); CLARITY,URINE CLEAR (Clear); COLOR,URINE YELLOW (Yellow); GLUCOSE, URINE NEGATIVE (Neg); KETONES,URINE NEGATIVE (Neg); LEUKOCYTE ESTERASE ,URINE TRACE (Neg); NITRITES, URINE NEGATIVE (Neg); OCCULT BLOOD,URINE NEGATIVE (Neg); PROTEIN,URINE NEGATIVE (Neg); UROBILINOGEN,URINE 0.2 E.U/dL (0.2-1.0)
[2024-11-30 13:19] LABS: BASOPHILS % (AUTO) 0.7 % (0-1); EOSINOPHILS # (AUTO) 0.3 X10'3 (0-0.9); EOSINOPHILS % (AUTO) 7.4 % (0-6); HEMATOCRIT 40.8 % (42.0-52.0); HEMOGLOBIN 13.3 g/dl (14.0-17.9); LYMPHOCYTES # (AUTO) 1.4 X10'3 (1.1-4.8); LYMPHOCYTES % (AUTO) 30.5 % (21-51); MEAN CORPUSCULAR HEMOGLOBIN 29.8 PG (27.0-31.0); MEAN CORPUSCULAR HGB CONC 32.6 g/dL (33.0-36.5); MEAN CORPUSCULAR VOLUME 91.2 FL (78-98); MONOCYTES # (AUTO) 0.5 X10'3 (0-0.9); MONOCYTES % (AUTO) 10.4 % (2-12); NEUTROPHILS # (AUTO) 2.3 X10'3 (1.8-7.7); PLATELET COUNT 250 X10'3 (140-440); RED BLOOD COUNT 4.47 X10'6 (4.70-6.10); RED CELL DISTRIBUTION WIDTH 13.7 % (11.5-14.5); WHITE BLOOD COUNT 4.6 X10'3 (4.5-11.0)
[2024-11-30 13:21] LABS: UA COLLECTION TYPE CLN CATCH MIDSTREAM
[2024-11-30 13:31] LABS: BACTERIA,URINE FEW /HPF (Neg); MUCUS STRANDS FEW /LPF (Neg); RBC,URINE NONE SEEN /HPF (0-2); SQUAMOUS EPITHELIAL CELL,UR NONE SEEN /LPF (FEW)
[2024-11-30 13:34] LABS: HEMOGLOBIN A1C 6.6 % (4.5-6.2)
[2024-11-30 13:39] LABS: ALANINE AMINOTRANSFERASE 35 U/L (12-78); ALBUMIN 3.7 G/DL (3.4-5.0); ALBUMIN/GLOBULIN RATIO 0.8 (1.1-1.5); ALKALINE PHOSPHATASE 69 IU/L (46-116); ANION GAP 7 (8-16); ASPARTATE AMINO TRANSFERASE 22 U/L (10-37); BILIRUBIN,TOTAL 0.6 MG/DL (0.1-1.0); BLOOD UREA NITROGEN 11 MG/DL (7-18); BUN/CREATININE RATIO 16.7 (10.0-20.0); CALCIUM 8.9 MG/DL (8.5-10.1); CHLORIDE 100 MMOL/L (99-107); CHOL/HDL RATIO 3.2 (0.00-4.99); CHOLESTEROL 185 MG/DL (0-200); CREATININE 0.66 MG/DL (0.60-1.10); GLUCOSE 134 MG/DL (70-104); HDL CHOLESTEROL 57 MG/DL (35-60); LDL CHOLESTEROL 105 MG/DL (50-100); POTASSIUM 4.3 MMOL/L (3.5-5.1); SODIUM 139 MMOL/L (135-145); TOTAL CARBON DIOXIDE 31.7 MMOL/L (24-32); TOTAL PROTEIN 8.2 G/DL (6.4-8.2); TRIGLYCERIDES 81 MG/DL (20-135); eGFR > 90 ML/MIN
== END 2024-11-30 23:59 | disposition home or self-care (01) ==
LOC: LAB 12:41
PROVIDERS: ATTEND Internal Medicine
DX: I10 Essential (primary) hypertension (principal); E78.5 Hyperlipidemia, unspecified; N39.0 Urinary tract infection, site not specified; E11.9 Type 2 diabetes mellitus without complications
CPT/HCPCS: 36415; 80053; 80061; 81001; 82043; 82570; 83036; 85025

== ENCOUNTER 2025-09-07 11:52 | Outpatient (CLI) | payer MEDICARE ==
[~2025-09-07 11:52] MED LIST changes: +ZOLP-679 PO; -ZOLP10TA PO
[2025-09-07 13:12] LABS: CHOL/HDL RATIO 2.9 (0.00-4.99); CREATININE 0.83 MG/DL (0.60-1.10); LDL CHOLESTEROL 96 MG/DL (50-100); TOTAL CARBON DIOXIDE 28.7 MMOL/L (24-32); eGFR 90 ML/MIN
== END 2025-09-07 23:59 | disposition home or self-care (01) ==
LOC: LAB 11:52
PROVIDERS: ATTEND Internal Medicine Interventional Cardiology
DX: I10 Essential (primary) hypertension (principal); E78.5 Hyperlipidemia, unspecified; N39.0 Urinary tract infection, site not specified; E11.9 Type 2 diabetes mellitus without complications; E55.9 Vitamin D deficiency, unspecified
CPT/HCPCS: 36415; 80053; 80061; 82248

== ENCOUNTER 2025-09-07 12:03 | Outpatient (CLI) | payer MEDICARE ==
[2025-09-07 13:01] LABS: MEAN PLATELET VOLUME 6.9 FL (7.4-10.4); RED CELL DISTRIBUTION WIDTH 13.5 % (11.5-14.5)
[2025-09-07 13:14] LABS: CHOL/HDL RATIO 2.9 (0.00-4.99); LDL CHOLESTEROL 96 MG/DL (50-100)
[2025-09-07 13:16] LABS: UA COLLECTION TYPE NON-SPECIFIED
[2025-09-07 13:17] LABS: LEUKOCYTE ESTERASE ,URINE TRACE (Neg); NITRITES, URINE NEGATIVE (Neg); OCCULT BLOOD,URINE NEGATIVE (Neg)
[2025-09-07 13:22] LABS: AMORPHOUS PHOSPHATES 1+; MUCUS STRANDS FEW /LPF (Neg); SQUAMOUS EPITHELIAL CELL,UR NONE SEEN /LPF (FEW)
== END 2025-09-07 23:59 | disposition home or self-care (01) ==
LOC: LAB 12:03
PROVIDERS: ATTEND Internal Medicine
DX: E11.9 Type 2 diabetes mellitus without complications (principal); E78.5 Hyperlipidemia, unspecified; N39.0 Urinary tract infection, site not specified; I10 Essential (primary) hypertension; E55.9 Vitamin D deficiency, unspecified
CPT/HCPCS: 36415; 80061; 81001; 83036; 85025